=== PATIENT | female | born 1955 | race Caucasian/White ===

== ENCOUNTER 2017-07-02 10:57 | Emergency (ER) | payer BC ==
--- NOTE | 2017-07-02 11:18 | EDM.PDOC ---
ED HPI GENERAL MEDICAL PROBLEM - General Chief Complaint: Lower Extremity Injury/Pain Stated Complaint: FALL Time Seen by Provider: 07/02/17 11:05 Source of Information: Reports: Patient History Limitations: Reports: No Limitations - History of Present Illness INITIAL COMMENTS - FREE TEXT/NARRATIVE: HISTORY AND PHYSICAL: History of present illness: [Patient comes to the emergency room complaining of left foot and ankle pain. States that she fell up some stairs at 1:15 AM this morning after having a few alcoholic drinks. She thinks that she missed a stair which caused her to fall. She denies any other injuries and states that she did not hit her head. She has no other complaints or concerns at this time. Denies numbness and tingling to her foot. Pain with weight bearing and with walking. Has not taken any medication for pain. Has a history of hypertension and type 2 diabetes. Smokes half a pack of cigarettes per day. Works at a local pharmacy.] Review of systems: As per history of present illness and below otherwise all systems reviewed and negative. Past medical history: As per history of present illness and as reviewed below otherwise noncontributory. Surgical history: As per history of present illness and as reviewed below otherwise noncontributory. Social history: No reported history of drug or alcohol abuse. Family history: As per history of present illness and as reviewed below otherwise noncontributory. Physical exam: Gen.: Well-developed well-nourished female in no acute distress. HEENT: Atraumatic, normocephalic. Oral mucous membranes are pink and moist. Extremities: Mild swelling appreciated to lateral left foot and left lateral malleolus. No bruising is appreciated. She is exquisitely tender just inferior to the left lateral malleolus. No calf pain with palpation. Neurovascular unremarkable. Neuro: Awake, alert, oriented. Motor and sensory unremarkable throughout. Exam nonfocal. Diagnostics: [Left foot x-ray, left ankle x-ray] Impression: [L foot and ankle pain] Plan: [Discussed w/ patient that her xrays show no fracture or abnormality. Recommend ice, rest, splint, elevate it. Patient is given an air splint. Follow up with PCP. All questions are answered and concerns are addressed. ] Definitive disposition and diagnosis as appropriate pending reevaluation and review of above. left foot and ankle Pain Score (Numeric/FACES): 4 - Related Data Allergies Allergy/AdvReac Type Severity Reaction Status Date / Time No Known Allergies Allergy Verified 07/02/17 11:04 Home Meds: Home Meds Losartan [Cozaar] 1 tab PO DAILY 07/02/17 [History] Omeprazole 1 tab PO DAILY 07/02/17 [History] Venlafaxine HCl [Venlafaxine ER] 1 tab PO DAILY 07/02/17 [History] atorvaSTATin [Lipitor] 20 mg PO DAILY 07/02/17 [History] metFORMIN HCl [Metformin HCl ER] 1 tab PO DAILY 07/02/17 [History] Review of Systems - Review of Systems Review Of Systems: ROS reveals no pertinent complaints other than HPI. ED EXAM, GENERAL - Physical Exam Exam: See Below Course - Vital Signs Last Recorded V/S: Last Vital Signs Temp 97.5 F 07/02/17 11:10 Pulse 85 07/02/17 11:10 Resp 18 07/02/17 11:10 BP 203/88 H 07/02/17 11:10 Pulse Ox 98 07/02/17 11:10 - Orders/Labs/Meds Orders: Active Orders 24 hr Category Date Time Status Ankle Min 3V Lt [CR] Stat Exams 07/02/17 11:11 Taken Foot 2V Lt [CR] Stat Exams 07/02/17 11:11 Taken Departure - Departure Time of Disposition: 12:10 Disposition: Home, Self-Care 01 Condition: Good Clinical Impression: Left foot pain - Discharge Information Instructions: Foot Sprain Referrals: PCP,None [Primary Care Provider] - Forms: ED Department Discharge Additional Instructions: The following information is given to patients seen in the emergency department who are being discharged to home. This information is to outline your options for follow-up care. We provide all patients seen in our emergency department with a follow-up referral. The need for follow-up, as well as the timing and circumstances, are variable depending upon the specifics of your emergency department visit. If you don't have a primary care physician on staff, we will provide you with a referral. We always advise you to contact your personal physician following an emergency department visit to inform them of the circumstance of the visit and for follow-up with them and/or the need for any referrals to a consulting specialist. The emergency department will also refer you to a specialist when appropriate. This referral assures that you have the opportunity for follow-up care with a specialist. All of these measure are taken in an effort to provide you with optimal care, which includes your follow-up. Under all circumstances we always encourage you to contact your private physician who remains a resource for coordinating your care. When calling for follow-up care, please make the office aware that this follow-up is from your recent emergency room visit. If for any reason you are refused follow-up, please contact the [facility] emergency department at and asked to speak to the emergency department charge nurse. Follow-up with your primary care provider. Return to ER as needed as discussed. - My Orders Last 24 Hours: My Active Orders 07/02/17 11:11 Ankle Min 3V Lt [CR] Stat Foot 2V Lt [CR] Stat - Assessment/Plan Last 24 Hours: My Active Orders 07/02/17 11:11 Ankle Min 3V Lt [CR] Stat Foot 2V Lt [CR] Stat
[2017-07-02 11:34] VITALS: BP 203/88
--- NOTE | 2017-07-04 15:08 | CR ---
EXAM DATE: 07/02/17 PATIENT'S AGE: 61 Patient: BALWINDER MILLARD Facility: [place], [place] Site . Site : 1955 Study: XRay Extremity Left ANKLE [id number]/16/2017 11:47:01 AM Ordering Physician: Doctor Harvey Final Report: INDICATION: Pain after a fall. Technique: Three views of the left ankle. Findings: No acute fracture or dislocation. The mortise is uniform. Soft tissues are intact. Impression: Negative left ankle. Dictated by Sally Cole MD @ Jul 02 2017 11:54AM (Electronic Signature) Report Signed by Proxy. RAKEL
--- NOTE | 2017-07-04 15:09 | CR ---
EXAM DATE: 07/02/17 PATIENT'S AGE: 61 Patient: BALWINDER MILLARD Facility: [place], [place] Site . Site : 1955 Study: XRay Extremity Left FOOT [id number]/16/2017 11:48:08 AM Ordering Physician: Doctor Harvey Final Report: INDICATION: Pain after a fall. Technique: Two views of the left foot. Findings: No acute fracture or dislocation. Joint spaces are maintained. Small plantar calcaneal spur and calcification at the Achilles tendon insertion site. Impression: No acute abnormality of the left foot. Dictated by Sally Cole MD @ Jul 02 2017 11:55AM (Electronic Signature) Report Signed by Proxy. RAKEL
== END 2017-07-02 12:17 | disposition home or self-care (01) ==
LOC: MW.ED 10:57
DX: M25.572 Pain in left ankle and joints of left foot (principal); I10 Essential (primary) hypertension; E11.9 Type 2 diabetes mellitus without complications; F17.210 Nicotine dependence, cigarettes, uncomplicated; W10.9XXA Fall (on) (from) unspecified stairs and steps, initial encounter; Z79.899 Other long term (current) drug therapy; Z79.84 Long term (current) use of oral hypoglycemic drugs
CPT/HCPCS: 73610-26-LT; 73610-LT; 73620-26-LT; 73620-LT; 99282; 99283